=== PATIENT | female | born 2000 | race Caucasian/White ===

== ENCOUNTER 2021-02-20 12:17 | Outpatient (REF) | payer BC, SELFPAY ==
[2021-02-21 17:25] LABS: COVID-19 RT-PCR UVMMC Result Positive (Negative)
== END 2021-02-20 12:18 | disposition home or self-care (01) ==
LOC: LBN 12:17
PROVIDERS: PCP Pediatrics; Visit Provider Physician Assistant Medical
DX: J02.9 Acute pharyngitis, unspecified (principal); Z20.822 Contact with and (suspected) exposure to COVID-19
CPT/HCPCS: U0003; 87070